=== PATIENT | female | born 1985 | race Hispanic/Latino ===

== ENCOUNTER 2017-05-28 09:12 | Day surgery (SDC) | payer OTHER ==
[2017-05-25 12:07] LABS: BASOPHILS % (AUTO) 0.2 % (0.0-5.0); EOSINOPHILS % (AUTO) 0.3 % (0.0-8.0); HEMATOCRIT 39.9 % (36-48); LYMPHOCYTES % (AUTO) 19.5 % (21.0-51.0); MEAN CORPUSCULAR HEMOGLOBIN 27.6 pg (27.0-33.0); MEAN CORPUSCULAR HGB CONC 33.4 g/dL (32.0-36.0); MEAN CORPUSCULAR VOLUME 82.6 fL (79-99); PLATELET COUNT (AUTO) 422 K/uL (130-400); RED BLOOD CELL COUNT(AUTO) 4.82 MIL/uL (4.00-5.50); RED CELL DISTRIBUTION WIDTH 13.6 % (11.0-15.5); WHITE BLOOD COUNT (AUTO) 8.7 K/uL (4.8-10.8)
[2017-05-25 12:12] VITALS: BP 148/76
[2017-05-28] VITALS (15 sets, daily range): BP systolic 115–151; BP diastolic 63–87
[~2017-05-28] VITALS: Ht 154.9 cm; Wt 91.1 kg
[~2017-05-28 09:12] MED LIST: CEFAZOLIN SODIUM 1 GM VIAL IVP SCH; HYDR25TA PO; LOSA100T29 PO; METO50TA18 PO
[2017-05-28] MEDS: LACTATED RINGERS 1000ML 1,000 ML IV SCH ×2 (11:31→13:16)
[2017-05-28] MEDS: CEFAZOLIN SODIUM 1 GM VIAL ONE ×2 (11:32→12:40)
[2017-05-28] MEDS ORDERED: MIDAZOLAM HCL 1 MG/ML 2ML VIAL ONE (12:32)
[2017-05-28] MEDS ORDERED: FENTANYL CITRATE PF 50 MCG/1 ML 2ML VIAL ONE (12:33)
[2017-05-28] MEDS ORDERED: PROPOFOL 10 MG/ML 20ML VIAL IV ONE (12:33)
[2017-05-28] MEDS ORDERED: LIDOCAINE PF 2% 5ML ABBOJECT ONE (12:44)
[2017-05-28] MEDS ORDERED: DEXAMETHASONE SOD PHOSPHATE 10MG/ML 1ML VIAL ONE (12:44)
[2017-05-28] MEDS ORDERED: ONDANSETRON HCL 4 MG/2 ML VIAL ONE (12:44)
[2017-05-28] MEDS ORDERED: PHENYLEPHRINE HCL 10 MG/ML 1ML VIAL IV ONE (13:12)
[2017-05-28] MEDS ORDERED: SODIUM CHLORIDE 0.9% 10 ML VIAL ONE (13:12)
[2017-05-28] MEDS ORDERED: MEPERIDINE-PF 50 MG/ML SYG ONE (13:30)
[2017-05-28] MEDS ORDERED: KETOROLAC TROMETHAMINE 30MG/ML ONE (13:30)
[2017-05-28] MEDS ORDERED: IBUP-2353 PO (14:47)
== END 2017-05-28 15:20 | disposition home or self-care (01) ==
LOC: DAH 09:12
PROVIDERS: ATTEND Obstetrics & Gynecology
DX: N92.0 Excessive and frequent menstruation with regular cycle (principal); I10 Essential (primary) hypertension
CPT/HCPCS: 36415; 58558; 84703; 85025; 86850; 86900; 86901; 88305; A4218; A4351; A4355; A4600; J0690; J1100; J1885; J2001; J2175; J2250; J2370; J2405; J2704; J3010; J7030; J7120 ×2

== ENCOUNTER 2019-01-24 17:47 | Emergency (ER) | payer OTHER ==
[~2019-01-24 17:47] MED LIST changes: -CEFAZOLIN SODIUM 1 GM VIAL IVP SCH; +IBUP-2784 PO; -LOSA100T29 PO; +LOSA100T58 PO
[2019-01-24] MEDS ORDERED: SODIUM CHLORIDE 0.9% 1000ML 1,000 ML IV ONE (18:55)
[2019-01-24 19:06] LABS: BASOPHILS % (AUTO) 0.2 % (0.0-5.0); EOSINOPHILS % (AUTO) 0.3 % (0.0-8.0); HEMATOCRIT 38.8 % (36-48); LYMPHOCYTES % (AUTO) 12.1 % (21.0-51.0); MEAN CORPUSCULAR HEMOGLOBIN 29.2 pg (27.0-33.0); MEAN CORPUSCULAR HGB CONC 34.2 g/dL (32.0-36.0); MEAN CORPUSCULAR VOLUME 85.4 fL (79-99); MONOCYTES % (AUTO) 5.1 % (3.0-13.0); NEUTROPHILS % (AUTO) 82.3 % (40.0-77.0); NUCLEATED RED BLOOD CELLS 0.1 % (0.0-0.19); PLATELET COUNT (AUTO) 352 K/uL (130-400); RED BLOOD CELL COUNT(AUTO) 4.55 MIL/uL (4.00-5.50); RED CELL DISTRIBUTION WIDTH 13.7 % (11.0-15.5); WHITE BLOOD COUNT (AUTO) 10.8 K/uL (4.8-10.8)
[2019-01-24 19:11] LABS: APPEARANCE,URINE Clear (CLEAR); BILIRUBIN,URINE Negative (NEGATIVE); COLOR,URINE Yellow (YELLOW); GLUCOSE, URINE (UA) Negative (NEGATIVE); KETONES,URINE Negative (NEGATIVE); LEUKOCYTE ESTERASE ,URINE Small (NEGATIVE); NITRATE,URINE Negative (NEGATIVE); OCCULT BLOOD,URINE Negative (NEGATIVE); PH,URINE 7.5 (5.0-8.0); PROTEIN,URINE Negative (NEGATIVE)
[2019-01-24 19:16] LABS: POTASSIUM 3.3 mmol/L (3.5-5.1)
[2019-01-24 19:21] LABS: ALBUMIN 3.6 g/dL (3.5-5.0); BILIRUBIN,TOTAL 0.3 mg/dL (0.2-1.0); TOTAL PROTEIN, SERUM 8.1 g/dL (6.0-8.3)
[2019-01-24 19:26] LABS: HCG,QUAL RESULT NEGATIVE (NEGATIVE)
[2019-01-24 19:34] LABS: RBC,URINE 0-1 /HPF (0-1)
[2019-01-24 20:02] LABS: BACTERIA,URINE Few /HPF (None Seen); SQUAMOUS EPITHELIAL CELL,UR Few /HPF (0-2)
== END 2019-01-24 20:24 | disposition home or self-care (01) ==
LOC: EDH 17:47
DX: R55 Syncope and collapse (principal); I10 Essential (primary) hypertension; E78.5 Hyperlipidemia, unspecified
CPT/HCPCS: 36415; 70450; 80053; 81001; 81025; 84484; 85025; 93005; 96360; 99285; J7030

== ENCOUNTER 2019-02-08 22:47 | Emergency (ER) | payer OTHER ==
[2019-02-08 23:35] LABS: BASOPHILS % (AUTO) 0.3 % (0.0-5.0); EOSINOPHILS % (AUTO) 0.9 % (0.0-8.0); HEMATOCRIT 38.6 % (36-48); LYMPHOCYTES % (AUTO) 30.1 % (21.0-51.0); MEAN CORPUSCULAR HEMOGLOBIN 28.7 pg (27.0-33.0); MEAN CORPUSCULAR HGB CONC 33.9 g/dL (32.0-36.0); MEAN CORPUSCULAR VOLUME 84.6 fL (79-99); MONOCYTES % (AUTO) 6.6 % (3.0-13.0); NEUTROPHILS % (AUTO) 62.1 % (40.0-77.0); PLATELET COUNT (AUTO) 347 K/uL (130-400); RED BLOOD CELL COUNT(AUTO) 4.56 MIL/uL (4.00-5.50); RED CELL DISTRIBUTION WIDTH 13.7 % (11.0-15.5); WHITE BLOOD COUNT (AUTO) 7.2 K/uL (4.8-10.8)
[2019-02-08 23:43] LABS: POTASSIUM 3.4 mmol/L (3.5-5.1)
[2019-02-08] MEDS ORDERED: SODIUM CHLORIDE 0.9% 1000ML 1,000 ML IV ONE (23:46)
[2019-02-08] MEDS ORDERED: ONDANSETRON HCL 4 MG/2 ML VIAL ONE (23:47)
[2019-02-08] MEDS ORDERED: MECLIZINE HCL 25 MG TABLET ONE (23:47)
[2019-02-08 23:48] LABS: ALBUMIN 3.6 g/dL (3.5-5.0); BILIRUBIN,TOTAL 0.2 mg/dL (0.2-1.0)
[2019-02-08 23:57] LABS: HCG,QUAL RESULT NEGATIVE (NEGATIVE)
[2019-02-09] LABS: BILIRUBIN,URINE Negative (NEGATIVE); GLUCOSE, URINE (UA) Negative (NEGATIVE); KETONES,URINE Negative (NEGATIVE); LEUKOCYTE ESTERASE ,URINE Trace (NEGATIVE); NITRATE,URINE Negative (NEGATIVE); OCCULT BLOOD,URINE Large (NEGATIVE); PH,URINE 7.5 (5.0-8.0); PROTEIN,URINE Trace mg/dL (NEGATIVE)
[2019-02-09 00:04] LABS: APPEARANCE,URINE TURBID (CLEAR); COLOR,URINE RED (YELLOW)
[2019-02-09 00:06] LABS: BACTERIA,URINE Few /HPF (None Seen); MUCUS,URINE None Seen LPF (None Seen); RBC,URINE TNTC /HPF (0-1); SQUAMOUS EPITHELIAL CELL,UR None Seen /HPF (0-2)
[2019-02-09] MEDS ORDERED: POTASSIUM BICARB/CIT AC 25 MEQ TABLET.EFF ONE (00:34)
[2019-02-09] MEDS ORDERED: FAMOTIDINE/PF 20 MG/2 ML VIAL IV ONE (00:35)
[2019-02-09] MEDS ORDERED: CEFTRIAXONE SODIUM 1 GM ONE (00:35)
== END 2019-02-09 00:50 | disposition home or self-care (01) ==
LOC: EDH 22:47
DX: N39.0 Urinary tract infection, site not specified (principal); E87.6 Hypokalemia; E86.0 Dehydration; E78.5 Hyperlipidemia, unspecified; I10 Essential (primary) hypertension
CPT/HCPCS: 36415; 80053; 81001; 81025; 85025; 96361; 96374; 96375; 99284; J0696; J2405; J3490; J7030

== ENCOUNTER 2019-03-30 23:45 | Emergency (ER) | payer OTHER ==
[2019-03-31 00:56] LABS: HCG,QUAL RESULT NEGATIVE (NEGATIVE)
[2019-03-31] MEDS ORDERED: IPRATROPIUM/ALBUTEROL SULFATE 3 ML SOLUTION IH ONE (01:07)
[2019-03-31] MEDS ORDERED: CEFTRIAXONE SODIUM 1 GM ONE (01:09)
[2019-03-31] MEDS ORDERED: DEXAMETHASONE SOD PHOSPHATE 10MG/ML 1ML VIAL ONE (01:09)
[2019-03-31] MEDS ORDERED: LIDOCAINE HCL-MPF 1% 2ML VIAL ONE (01:09)
[2019-03-31 01:36] LABS: AMPHET/METH SCREEN,URINE NEGATIVE (NEGATIVE); BARBITURATE SCREEN, URINE NEGATIVE (NEGATIVE); BENZODIAZEPINES SCREEN,URINE NEGATIVE (NEGATIVE); CANNABINOID SCREEN,URINE NEGATIVE (NEGATIVE); COCAINE SCREEN,URINE NEGATIVE (NEGATIVE); OPIATE SCREEN,URINE NEGATIVE (NEGATIVE); PHENCYCLIDINE SCREEN,URINE NEGATIVE (NEGATIVE)
== END 2019-03-31 02:36 | disposition home or self-care (01) ==
LOC: EDH 23:45
DX: J20.9 Acute bronchitis, unspecified (principal); I10 Essential (primary) hypertension; F41.9 Anxiety disorder, unspecified
CPT/HCPCS: 71046; 80305; 81025; 87804 ×2; 93005; 94640; 96372 ×2; 99285; J0696; J1100; J3490

== ENCOUNTER 2021-12-27 01:31 | Emergency (ER) | payer OTHER ==
[~2021-12-27] VITALS: Ht 154.9 cm; Wt 100.2 kg
[2021-12-27] MEDS ORDERED: ACET-2079 PO (02:57)
[2021-12-27 02:59] VITALS: BP 143/84
[2021-12-27] MEDS ORDERED: ACETAMINOPHEN WITH CODEINE 1 TAB TAB PO PRN (03:00)
[2021-12-27] MEDS ORDERED: KETOROLAC 60 MG VIAL (30MG/ML) IM ONE (03:00)
== END 2021-12-27 03:02 | disposition home or self-care (01) ==
LOC: EDH 01:31
DX: G50.0 Trigeminal neuralgia (principal); I10 Essential (primary) hypertension; Z79.1 Long term (current) use of non-steroidal anti-inflammatories (NSAID); Z79.899 Other long term (current) drug therapy
CPT/HCPCS: 99283; 96372; J1885

== ENCOUNTER → 2022-02-24 | Outpatient (CLI) | payer OTHER ==
[~2022-02-24] MED LIST changes: +ACET-2079 PO
== END | disposition home or self-care (01) ==
LOC: RAH 12:42
PROVIDERS: ATTEND Family Medicine
DX: N63.15 Unspecified lump in the right breast, overlapping quadrants (principal); N63.20 Unspecified lump in the left breast, unspecified quadrant
CPT/HCPCS: 77066

== ENCOUNTER 2022-11-21 19:27 | Emergency (ER) | payer BC, OTHER ==
[~2022-11-21] VITALS: Ht 154.9 cm; Wt 94.3 kg
[~2022-11-21 19:27] MED LIST changes: -LOSA100T58 PO; +LOSA100T59 PO
[2022-11-21] MEDS ORDERED: CEPH500B PO (20:48)
[2022-11-21 20:51] VITALS: BP 143/79; PULSE 75; RESP 17; O2SAT 98
== END 2022-11-21 20:54 | disposition home or self-care (01) ==
LOC: EDH 19:27
DX: S00.96XA Insect bite (nonvenomous) of unspecified part of head, initial encounter (principal); I10 Essential (primary) hypertension; E78.00 Pure hypercholesterolemia, unspecified; Z79.899 Other long term (current) drug therapy; Z98.890 Other specified postprocedural states; W57.XXXA Bitten or stung by nonvenomous insect and other nonvenomous arthropods, initial encounter; Y93.89 Activity, other specified; Y92.89 Other specified places as the place of occurrence of the external cause; Y99.8 Other external cause status